=== PATIENT | male | born 1970 | race Caucasian/White ===

== ENCOUNTER 2021-12-29 21:08 | Emergency (ER) | payer SELFPAY ==
[2021-12-29 21:40] LABS: HEMOGLOBIN 14.2 gm/dl (14.0-17.5); RED BLOOD COUNT 4.56 M/UL (4.20-5.50); WHITE BLOOD COUNT 4.8 K/UL (4.5-11.0)
[2021-12-29 22:02] LABS: BUN/CREATININE RATIO 19 (0-10)
[2021-12-30] MEDS ORDERED: TORADOL 10 MG T10 MG PO (00:12)
[2021-12-30] MEDS ORDERED: ZOFRAN 4 MG TAB4 MG PO (00:12)
== END 2021-12-30 00:30 | disposition home or self-care (01) ==
LOC: ER1 21:08
PROVIDERS: Family Medicine
DX: N13.2 Hydronephrosis with renal and ureteral calculous obstruction (principal)
CPT/HCPCS: 80053; 81001; 85025; 96372; 96374; 99284; J1885